=== PATIENT | female | born 1970 | race African-American/Black ===

== ENCOUNTER 2017-12-13 10:41 | Emergency (ER) | payer OTHER ==
[~2017-12-13] VITALS: Ht 170.2 cm; Wt 86.0 kg
[2017-12-13 10:47] VITALS: BP 130/80; PULSE 81; RESP 16; TEMP 98.5; O2SAT 100
--- NOTE | 2017-12-13 11:14 | PD ---
HPI Chief Complaint: Dizziness Time Seen by Provider: 10:56 Travel History International Travel<30 days: No Contact w/Intl Traveler<30days: No Traveled to known affect area: No History of Present Illness HPI 47yo F with PMH of anxiety presents to the ED with c/o feeling palpitations, sob , dizziness, nauseous today. Pt is hyperventilating and does feel that this may be her anxiety. Denies any fever, visual changes, chest pain, vomiting, abdominal pain, focal weakness or numbness. Dizziness is both room spinning and lightheaded. Said these episodes just comes on out of no where. Had similar symptoms before. Pt just had her thyroid check 1 month ago and it was normal. PFSH Past Medical History ?: Not Past Surgical History Hysterectomy: Yes Social History Tobacco Use: No Allergies-Medications (Allergen,Severity, Reaction): Coded Allergies: No Known Allergies (Unverified , 12/13/17) Reported Meds & Prescriptions Reported Meds & Active Scripts Active Vistaril (Hydroxyzine Pamoate) 50 Mg Cap 50 Mg PO TID Review of Systems Except as stated in HPI: all other systems reviewed are Neg Physical Exam Narrative GENERAL: 47yo F in mild distress. SKIN: Focused skin assessment warm/dry. HEAD: Atraumatic. Normocephalic. EYES: Pupils equal and round. No scleral icterus. No injection or drainage. No nystagmus. ENT: No nasal bleeding or discharge. Mucous membranes pink and moist. NECK: Trachea midline. No JVD. CARDIOVASCULAR: Regular rate and rhythm. No murmur appreciated. RESPIRATORY: + accessory muscle use. Clear to auscultation. Breath sounds equal bilaterally. Pt is hyperventilating. GASTROINTESTINAL: Abdomen soft, non-tender, nondistended. Hepatic and splenic margins not palpable. MUSCULOSKELETAL: No obvious deformities. No clubbing. No cyanosis. No edema. NEUROLOGICAL: Awake and alert. No obvious cranial nerve deficits. Motor grossly within normal limits in all extremities. Sensation equal. Normal speech. PSYCHIATRIC: Appropriate mood and affect; insight and judgment normal. Data Data Last Documented VS Vital Signs Date Time Temp Pulse Resp B/P (MAP) Pulse Ox O2 Delivery O2 Flow Rate FiO2 12/13/17 11:12 69 100 Room Air 12/13/17 10:47 98.5 16 130/80 (97) Orders Orders Lorazepam (Ativan) (12/13/17 11:15) Ondansetron Odt (Zofran Odt) (12/13/17 11:15) Ed Urine Pregnancytest Poc (12/13/17 11:14) Blood Glucose (12/13/17 11:16) Ed Discharge Order (12/13/17 11:58) Electrocardiogram (12/13/17 10:57) [facility] Medical Decision Making Medical Screen Exam Complete: Yes Emergency Medical Condition: Yes Interpretation(s) EKG: NSR 71bpm. Normal axis. No ST segment elevation or depression. QTc 415ms. Differential Diagnosis Anxiety vs. vertigo vs. nausea Narrative Course 47yo F here with episode of palpitations, sob, dizziness. She appears very anxious and is hyperventilating. Has history of anxiety and feels like her anxiety. Vital signs normal. No focal neurologic deficits. Pt just had her thyroid checked and it was normal. Will given ativan and zofran and reevaluate. Blood glucose 80. Pt reevaluated at bedside and all symptoms has resolved. Pt feels much better. She said her 3 days ago and has been stress. Denies any suicidal or homicidal ideations. Return precautions given. Diagnosis Primary Impression: Anxiety Patient Instructions: General Instructions Departure Forms: Tests/Procedures Additional Instructions: Please follow up with your primary care physician in 2-3 days. Return to the ED if symptoms worsen. Med/Other Pt SpecificInfo: Prescription(s) given Scripts Hydroxyzine Pamoate (Vistaril) 50 Mg Cap 50 MG PO TID for Anxiety, #6 CAP 0 Refills Prov: Marylu Perez 12/13/17 Disposition: 01 DISCHARGE HOME Condition: Stable Marylu Perez December 13, 2017 11:14
[2017-12-13] MEDS ORDERED: LORazepam 1 MG TAB PO ONE (11:15)
[2017-12-13] MEDS ORDERED: ONDANSETRON ODT 4 MG TAB PO ONE (11:15)
[2017-12-13] MEDS ORDERED: VIST50CA PO (11:58)
--- NOTE | 2017-12-13 16:32 | EKG ---
Date Performed: 12/13/2017 Time Performed: 10:57:29 PTAGE: 47 years EKG: Sinus rhythm NORMAL ECG NO PREVIOUS TRACING DOCTOR: Delfino Winchester Interpretating Date/Time 12/13/2017 16:31:19
== END 2017-12-13 12:11 | disposition home or self-care (01) ==
LOC: PHED 10:41
DX: F41.9 Anxiety disorder, unspecified (principal); R00.2 Palpitations; R06.02 Shortness of breath; R42 Dizziness and giddiness
CPT/HCPCS: 93005; 99283